=== PATIENT | female | born 1975 | race Caucasian/White ===

== ENCOUNTER → 2019-04-08 07:37 | Outpatient (CLI) | payer BC, SELFPAY ==
[2019-04-08 13:42] LABS: Basophils % 0.4 % (0.1-2.0); Eosinophils # 0.3 K/mm3 (0.0-0.4); Eosinophils % 2.9 % (0.1-12.0); Hematocrit 34.3 % (37.0-47.0); Hemoglobin 9.4 g/dL (12.2-16.2); Lymphocytes # 3.1 K/mm3 (0.7-4.5); Lymphocytes % 36.7 % (10-50); Mean Corpuscular HGB Conc 27.6 g/dL (31.8-35.4); Mean Corpuscular Hemoglobin 19.6 pg (27.0-31.2); Mean Corpuscular Volume 70.9 fl (81-99); Mean Platelet Volume 7.5 fl (7.4-10.4); Monocytes # 0.2 K/mm3 (0.1-1.0); Monocytes % 2.8 % (1.7-9.3); Neutrophils # 4.8 K/mm3 (1.8-7.8); Neutrophils % 57.1 % (37.0-80.0); Platelet Count 455 K/mm3 (142-424); Red Blood Count 4.83 M/mm3 (4.20-5.40); Red Cell Distribution Width 17.2 % (11.5-17.5); White Blood Count 8.5 K/mm3 (4.8-10.8)
[2019-04-08 14:12] LABS: Alanine Aminotransferase 19 U/L (12-78); Albumin Level 2.9 gm/dL (3.4-5.0); Albumin/Globulin Ratio 0.7 (1.1-1.8); Alkaline Phosphatase 135 U/L (46-116); Anion Gap 15.5 mEq/L (5-15); Aspartate Amino Transferase 14 U/L (15-37); Bilirubin,Total 0.3 mg/dL (0.2-1.0); Blood Urea Nitrogen 8 mg/dL (7-18); Calcium 8.6 mg/dL (8.5-10.1); Carbon Dioxide 24 mmol/L (21.0-32.0); Chloride 103 mmol/L (98-107); Chol/HDL Ratio 3.1 (1-3.5); Cholesterol 218 mg/dL (140-200); Creatinine,Serum 0.85 mg/dL (0.55-1.02); Estimated Glomerular Filt Rate 73 ml/min (>60); Free T4 (Free Thyroxine) 0.91 ng/dl (0.76-1.46); GFR (African American) 89 ML/MIN (>60); Globulin 3.9 gm/dl (1.3-3.2); Glucose 123 mg/dL (74-106); HDL Cholesterol 71 mg/dL (29-89); LDL Cholesterol 107 mg/dL (0-130); Potassium 4.5 mmoL/L (3.5-5.1); Sodium 138 mmol/L (136-145); Thyroid Stimulating Hormone 3.39 uIU/ml (0.358-3.740); Total Protein,Serum 6.8 gm/dL (6.4-8.2); Triglycerides 201 mg/dL (30-200); VLDL Cholesterol 40 mg/dL (0-40)
[2019-04-10 20:49] LABS: Estradiol 10.1 pg/mL (.); Progesterone 0.2 ng/mL (.); Vitamin B12 370 pg/mL (232-1245); Vitamin D 25 Hydroxy 13.7 ng/mL (30.0-100.0)
== END ==
PROVIDERS: PCP Nurse Practitioner Family; Visit Provider Nurse Practitioner Family
DX: Z00.00 Encounter for general adult medical examination without abnormal findings (principal)
CPT/HCPCS: 36415; 80053; 80061; 82607; 82652; 82670; 84144; 84439; 84443; 85025

== ENCOUNTER → 2021-04-18 08:30 | Outpatient (CLI) | payer BC, SELFPAY ==
[2021-04-18 09:25] LABS: Hemoglobin A1C 6.6 % (4.0-6.0)
[2021-04-18 11:21] LABS: Thyroid Stimulating Hormone 1.92 uIU/mL (0.465-4.68)
[2021-04-18 11:27] LABS: Alanine Aminotransferase 19 U/L (12-78); Albumin Level 4.2 g/dl (3.5-5.0); Albumin/Globulin Ratio 1.5 (1.1-1.8); Alkaline Phosphatase 136 U/L (38-126); Anion Gap 15.4 mEq/L (5-15); Aspartate Amino Transferase 18 U/L (14-36); Bilirubin,Total 0.4 mg/dl (0.2-1.3); Blood Urea Nitrogen 18 mg/dl (7-17); Calcium 9.2 mg/dl (8.4-10.2); Carbon Dioxide 28 mmol/L (22.0-30.0); Chloride 98 mmol/L (98-107); Chol/HDL Ratio 2.3 (1-3.5); Cholesterol 237 mg/dl (140-200); Estimated Glomerular Filt Rate 78 ml/min (>60); GFR (African American) 94 ML/MIN (>60); Globulin 2.8 g/dL (1.3-3.2); Glucose 115 mg/dl (74-100); HDL Cholesterol 105 mg/dl (40-60); Potassium 4.4 mmoL/L (3.5-5.1); Sodium 137 mmol/L (136-145); Triglycerides 175 mg/dl (30-150); VLDL Cholesterol 35 mg/dL (0-40)
[2021-04-18 11:38] LABS: Direct LDL Cholesterol 117.79 mg/dL (100-129)
== END ==
PROVIDERS: Visit Provider Nurse Practitioner Family
DX: Z13.1 Encounter for screening for diabetes mellitus (principal); Z13.29 Encounter for screening for other suspected endocrine disorder; Z13.220 Encounter for screening for lipoid disorders
CPT/HCPCS: 36415; 80053; 80061; 83036; 84443

== ENCOUNTER → 2021-09-04 09:49 | Outpatient (CLI) | payer BC, SELFPAY ==
--- NOTE | 2021-09-04 09:58 | XR_ITS ---
PROCEDURE: XR FOOT RT MIN 3V CLINICAL INDICATION: RT FOOT PAIN COMPARISON: No exams were available for comparison FINDINGS: A small ossicle is present along the anterior and proximal aspect of the navicular. This is well-circumscribed and could be related to an old fracture or an unfused ossification center. IMPRESSION: Old fracture versus unfused ossicle at the navicular otherwise negative Dictated by: Chintan Deleon MD 09/04/2021 17:55 Chintan Deleon MD in [facility] 09/04/2021 17:55
== END ==
PROVIDERS: PCP Nurse Practitioner Family; Visit Provider Nurse Practitioner Family
DX: M79.671 Pain in right foot (principal)
CPT/HCPCS: 73630

== ENCOUNTER → 2021-09-20 12:59 | Outpatient (CLI) | payer BC, SELFPAY ==
--- NOTE | 2021-09-20 13:02 | MR_ITS ---
PROCEDURE INFORMATION: Exam: MR Right Lower Extremity Other Than Joint Without Contrast; Foot Exam date and time: 09/20/2021 1:02 PM Age: 46 years old Clinical indication: Pain; Foot; Right; Additional info: Abnormal x-ray. Lateral sided foot pain [id number]. No injury or trauma. X-ray 09-04-21. TECHNIQUE: Imaging protocol: MR of the Right lower extremity without contrast. Exam focused on the foot. COMPARISON: CR XR FOOT RT MIN 3V 09/04/2021 10:21 AM FINDINGS: Bones and cartilage: There is no acute fracture or dislocation. No aggressive bone lesions are present. A small accessory bone (os supranaviculare) or chronic fracture fragment is present dorsal to the talonavicular joint. Joint spaces: A mild effusion involves the ankle joint. LIGAMENTS: Anterior talofibular ligament: The anterior talofibular ligament is not visible, consistent with a full thickness tear. Posterior talofibular ligament: The posterior talofibular ligament is thickened and has intermediate signal intensity, consistent with prior low grade injury. Calcaneofibular ligament: The calcaneofibular ligament is incompletely visualized, potentially representing a full thickness tear. Lisfranc ligament: Unremarkable. No evidence of tear. TENDONS: Flexor tendons of foot: Unremarkable. No evidence of tear. Tibialis posterior tendon: Trace tenosynovitis involves the tibialis posterior tendon. No tear. Peroneal tendons: Unremarkable as visualized. Extensor tendons of foot: Unremarkable. No evidence of tear. Tibialis anterior tendon: Unremarkable as visualized. Tarsal canal (Sinus tarsi): The sinus tarsi has normal fat signal. Tarsal tunnel: Unremarkable. Soft tissues: There is a mild amount of edema in the subcutaneous fat. Plantar fascia: The proximal plantar fascia is mildly thickened and has mildly increased T2 signal consistent with mild plantar fasciitis (fasciopathy). Mild superficial edema is also present. IMPRESSION: 1. Full-thickness tear of the anterior talofibular ligament. 2. Possible full-thickness tear of the calcaneofibular ligament. 3. Low-grade injury of the posterior talofibular ligament. 4. Mild plantar fasciitis (fasciopathy). 5. No acute fracture or dislocation.
--- NOTE | 2021-09-20 13:02 | MR_ITS ---
PROCEDURE INFORMATION: Exam: MR Left Upper Extremity Joint Without Contrast; Wrist Exam date and time: 09/20/2021 1:02 PM Age: 46 years old Clinical indication: Pain; Wrist; Left; Additional info: Wrist pain, left. Radial sided wrist pain [id number]. No injury or trauma. No prior. TECHNIQUE: Imaging protocol: MR of the Left upper extremity without contrast. Exam focused on the wrist. COMPARISON: No relevant prior studies available. FINDINGS: Limitations: Motion artifact. Bones and cartilage: There is no acute fracture or dislocation. No evidence of a healed fracture. No aggressive bone lesions are present. Joint spaces: No significant joint effusion. Scapholunate ligament: Unremarkable. No tear. Lunotriquetral ligament: Unremarkable. No tear. Triangular fibrocartilage complex: Unremarkable. No tear. Flexor compartment tendons: Unremarkable. No tear. Extensor compartment tendons: The extensor carpi ulnaris tendon is partially subluxed out of the ulnar head groove suggesting stripping of the subsheath along the palmar ulnar aspect (series 3/images 17-19). There is minimal tendinosis of the extensor carpi ulnaris tendon. Mild increased T2 signal within the tendons of the first extensor compartment (abductor pollicis longus, extensor pollicis brevis) is consistent with mild tendinosis. Muscles: Unremarkable. No acute abnormality. Soft tissues: No suspicious soft tissue mass. IMPRESSION: 1. Mild tendinosis of the tendons of the first extensor compartment (abductor pollicis longus, extensor pollicis brevis). 2. Extensor carpi ulnaris subluxation suggesting stripping of the extensor carpi ulnaris subsheath.
== END ==
LOC: RAD 12:59
PROVIDERS: PCP Nurse Practitioner Family; Visit Provider Nurse Practitioner Family
DX: M25.532 Pain in left wrist (principal); R93.89 Abnormal findings on diagnostic imaging of other specified body structures
CPT/HCPCS: 73221; 73718

== ENCOUNTER → 2021-11-20 09:00 | Outpatient (CLI) | payer BC, SELFPAY ==
--- NOTE | 2021-11-20 09:13 | XR_ITS ---
FINAL REPORT CLINICAL HISTORY: pain FINDINGS: RIGHT CALCANEUS Two views demonstrate no acute fracture or dislocation. The joint spaces appear normal. There is a small posterior calcaneal spur. No soft tissue abnormality is seen. IMPRESSION: No acute process. Reviewed, Interpreted and Dictated by David Jerez III, MD Transcribed by Michelle Joaquin Authenticated by David Jerez III, MD on 11/20/2021 11:30:00 AM [facility]
--- NOTE | 2021-11-20 09:13 | XR_ITS ---
FINAL REPORT CLINICAL HISTORY: pain FINDINGS: LEFT CALCANEUS Two views demonstrate no acute fracture or dislocation. The joint spaces appear normal. There is a small posterior calcaneal spur. No soft tissue abnormality is seen. IMPRESSION: No acute process. Reviewed, Interpreted and Dictated by David Jerez III, MD Transcribed by Michelle Joaquin Authenticated by David Jerez III, MD on 11/20/2021 11:30:04 AM [facility]
--- NOTE | 2021-11-20 09:13 | XR_ITS ---
FINAL REPORT CLINICAL HISTORY: pain FINDINGS: RIGHT FOOT Three views demonstrate no acute fracture or dislocation. There are mild degenerative changes. A small posterior calcaneal spur is identified. No soft tissue abnormality is seen. IMPRESSION: No acute process. Reviewed, Interpreted and Dictated by David Jerez III, MD Transcribed by Michelle Joaquin Authenticated by David Jerez III, MD on 11/20/2021 11:30:[address] [facility]
--- NOTE | 2021-11-20 09:13 | XR_ITS ---
FINAL REPORT CLINICAL HISTORY: pain FINDINGS: LEFT FOOT Three views demonstrate no acute fracture or dislocation. There are mild degenerative changes. A small posterior calcaneal spur is identified. No soft tissue abnormality is seen. IMPRESSION: No acute process. Reviewed, Interpreted and Dictated by David Jerez III, MD Transcribed by Michelle Joaquin Authenticated by David Jerez III, MD on 11/20/2021 11:30:[address] [facility]
== END ==
LOC: RAD 09:01
PROVIDERS: PCP Nurse Practitioner Family; Visit Provider Podiatrist
DX: M79.672 Pain in left foot (principal); M79.671 Pain in right foot
CPT/HCPCS: 73630; 73650

== ENCOUNTER 2021-12-19 17:30 | Outpatient (RCR) | payer BC, SELFPAY ==
--- NOTE | 2021-10-23 17:33 | HMH.PTOPEV ---
PT Outpatient Evaluation Rehab PT Outpatient Evaluation Start: 10/23/21 16:55 Freq: Status: Active Protocol: Document 10/23/21 16:55 FAM (Rec: 10/23/21 17:33 [id number]) Electronically Signed By Eduardo Moser PT 10/23/21 16:55 Outpatient Therapy Subjective History Subjective History This is the initial Physical THerapy evaluation for Rashida SilverioDionnegadiel. Pt is a 46 y/o female referred to PT for c/o R foot/ankle pain. Pt reports insidious onset of pain in R lateral foot in july. Pt does not recall any traumatic event to initiate pain. Pt reports she had radiographs and visited [facility]. Pt states she was in CAM boot and has transitioned to corset ankle brace. Pt reports pain in R lateral foot has decreased but is still present. Chief Complaint Pain,Stiff Symptom Type Ache,Throb,Sharp Symptoms Relieved By Rest/Positioning,Ice,OTC Meds Symptoms Aggravated By Physical Activity,Walking Prior Functional Limitations None Current Functional Limitations Housework,Recreation Activity, Walking Symptom Description Intermittent Level of pain today (0-10) 2 Pain scale - at its best (0-10) 0 Pain scale - at its worst (0-10) 5 Ankle/Foot Eval Gait Observation General Gait Pattern Observation Antalgic Gait,Decrease Weight Bear (R) Palpation Tenderness right Ankle/Foot Palpation Findings Tenderness Ankle/Foot Palpation Overall Comment TTP along styloid procss of 5th ray and peroneal brevis insertion ATF TTP negative PTF TTP negative CF TTP negative Deltoid ligament TTP negative ROM bilateral Ankle/Foot ROM Reason Not Measured Within Functional Limits Special Tests Ankle Inversion (supination) Test Positive Right Outpatient Therapy Assessment Impairments Problems/Impairmments Palpation Tenderness,Impaired Gait Pattern,Impaired Walking, Impaired Household Care, Impaired Stair Climbing, Impaired Incline Stepping, Impaired Stepping on Uneven Surface,Impaired Recre
== END 2021-12-19 17:35 | disposition home or self-care (01) ==
LOC: PT 17:30
PROVIDERS: PCP Nurse Practitioner Family; Visit Provider Podiatrist
DX: S93.401A Sprain of unspecified ligament of right ankle, initial encounter (principal); M76.71 Peroneal tendinitis, right leg; M76.72 Peroneal tendinitis, left leg
CPT/HCPCS: 97033; 97035; 97110; 97112; 97163; 97164; 97760

== ENCOUNTER 2024-01-28 18:14 | Outpatient (CLI) | payer BC, SELFPAY ==
[2024-01-28 16:52] LABS: Basophils # 0.1 K/mm3 (0-0.2); Basophils % 0.7 % (0.1-2.0); Eosinophils # 0.2 K/mm3 (0.0-0.4); Eosinophils % 2.8 % (0.1-12.0); Hematocrit 40.4 % (37.0-47.0); Hemoglobin 12.6 g/dL (12.2-16.2); Lymphocytes # 1.8 K/mm3 (0.7-4.5); Lymphocytes % 26.2 % (10-50); Mean Corpuscular HGB Conc 31.3 g/dL (31.8-35.4); Mean Corpuscular Hemoglobin 26.5 pg (27.0-31.2); Mean Corpuscular Volume 84.5 fl (81-99); Mean Platelet Volume 9.5 fl (7.4-10.4); Monocytes # 0.4 K/mm3 (0.1-1.0); Monocytes % 4.9 % (1.7-9.3); Neutrophils # 4.6 K/mm3 (1.8-7.8); Neutrophils % 65.3 % (37.0-80.0); Platelet Count 388 K/mm3 (142-424); Red Blood Count 4.77 M/mm3 (4.20-5.40); Red Cell Distribution Width 16.6 % (11.5-17.5)
[2024-01-28 17:28] LABS: Chloride 100 mmol/L (98-107); Potassium 4.9 mmoL/L (3.5-5.1); Sodium 136 mmol/L (136-145)
[2024-01-28 17:30] LABS: Alanine Aminotransferase 25 U/L (12-78); Aspartate Amino Transferase 53 U/L (14-36); Blood Urea Nitrogen 9 mg/dl (7-17); Estimated Glomerular Filt Rate 90 ml/min (>60); GFR (African American) 109 ML/MIN (>60)
[2024-01-28 17:31] LABS: Albumin Level 3.8 g/dl (3.5-5.0); Albumin/Globulin Ratio 1.2 (1.1-1.8); Alkaline Phosphatase 145 U/L (38-126); Anion Gap 10.9 mEq/L (5-15); Calcium 9.5 mg/dl (8.4-10.2); Carbon Dioxide 30 mmol/L (22.0-30.0); Globulin 3.1 g/dL (1.3-3.2); Glucose 181 mg/dl (74-100); Total Protein,Serum 6.9 g/dl (6.3-8.2)
[2024-01-28 17:49] LABS: Bilirubin,Total < 0.1 mg/dl (0.2-1.3)
[2024-01-28 18:00] LABS: Thyroid Stimulating Hormone 0.62 uIU/mL (0.465-4.68)
[2024-01-28 18:04] LABS: Ferritin 10.9 ng/ml (6.24-137)
[2024-01-28 18:40] LABS: 25-OH Vitamin D, Total < 12.8 ng/mL (30-100)
[2024-01-28 18:48] LABS: Hemoglobin A1C 6.7 % (4.0-6.0)
[2024-01-28 20:51] LABS: Vitamin B12 218 pg/mL (239-931)
== END 2024-01-28 23:59 ==
LOC: LAB.DROPOF 18:14
PROVIDERS: PCP Nurse Practitioner Family; Visit Provider Nurse Practitioner Family
DX: L65.9 Nonscarring hair loss, unspecified (principal); E11.9 Type 2 diabetes mellitus without complications; J02.9 Acute pharyngitis, unspecified; E55.9 Vitamin D deficiency, unspecified; E53.8 Deficiency of other specified B group vitamins; Z79.84 Long term (current) use of oral hypoglycemic drugs; Z79.899 Other long term (current) drug therapy
CPT/HCPCS: 80053; 82306; 82607; 82728; 83036; 84443; 85025

== ENCOUNTER 2024-02-06 14:20 | Outpatient (CLI) | payer BC, SELFPAY ==
--- NOTE | 2024-02-06 14:21 | MM_ITS ---
PROCEDURE INFORMATION: Exam: MG Bilateral Screening 3D Mammography Exam date and time: 02/06/2024 2:14 PM Age: 48 years old Clinical indication: Screening examination TECHNIQUE: Imaging protocol: Bilateral Screening tomosynthesis and 2D mammography including computer-aided detection (CAD) when performed. COMPARISON: No relevant prior studies available. FINDINGS: MAMMOGRAPHY: Breast composition: The breasts are heterogeneously dense, which may obscure small masses. Mass: None. Architectural distortion: None. Calcifications: No suspicious calcifications. Asymmetric density: None. Skin thickening: None. Axillary adenopathy: None. IMPRESSION: No mammographic evidence of malignancy. Annual screening is recommended unless otherwise clinically indicated. ASSESSMENT: BI-RADS Category 1: Negative
== END 2024-02-06 23:59 ==
LOC: RAD 14:21
PROVIDERS: PCP Nurse Practitioner Family; Visit Provider Nurse Practitioner Family
DX: Z12.31 Encounter for screening mammogram for malignant neoplasm of breast (principal)
CPT/HCPCS: 77063; 77067

== ENCOUNTER 2024-04-06 12:55 | Outpatient (CLI) | payer BC, SELFPAY ==
[2024-04-06 19:46] LABS: Hemoglobin A1C 7.1 % (4.0-6.0)
[2024-04-06 19:54] LABS: Alanine Aminotransferase 20 U/L (12-78); Albumin Level 4.2 g/dl (3.5-5.0); Albumin/Globulin Ratio 1.3 (1.1-1.8); Alkaline Phosphatase 129 U/L (38-126); Anion Gap 16.6 mEq/L (5-15); Aspartate Amino Transferase 28 U/L (14-36); Bilirubin,Total 0.2 mg/dl (0.2-1.3); Blood Urea Nitrogen 9 mg/dl (7-17); Calcium 9.6 mg/dl (8.4-10.2); Carbon Dioxide 29 mmol/L (22.0-30.0); Chloride 97 mmol/L (98-107); Estimated Glomerular Filt Rate 90 ml/min (>60); GFR (African American) 109 ML/MIN (>60); Globulin 3.3 g/dL (1.3-3.2); Glucose 122 mg/dl (74-100); Potassium 4.6 mmoL/L (3.5-5.1); Sodium 138 mmol/L (136-145); Total Protein,Serum 7.5 g/dl (6.3-8.2)
[2024-04-06 20:11] LABS: 25-OH Vitamin D, Total 32.3 ng/mL (30-100)
[2024-04-06 20:44] LABS: Vitamin B12 493 pg/mL (239-931)
[2024-04-12 05:55] LABS: Intrinsic Factor Abs, Serum 1.1 AU/mL (0.0-1.1)
== END 2024-04-06 23:59 | disposition home or self-care (01) ==
LOC: LAB.DROPOF 04-07 12:55
PROVIDERS: PCP Nurse Practitioner Family; Visit Provider Nurse Practitioner Family
DX: E11.9 Type 2 diabetes mellitus without complications (principal); E53.9 Vitamin B deficiency, unspecified; R74.8 Abnormal levels of other serum enzymes; E66.9 Obesity, unspecified; Z68.41 Body mass index [BMI] 40.0-44.9, adult
CPT/HCPCS: 80053; 82306; 82607; 83036; 86340

== ENCOUNTER 2024-05-26 16:22 | Outpatient (CLI) | payer BC, SELFPAY ==
--- NOTE | 2024-05-26 16:26 | XR_ITS ---
FINAL REPORT CLINICAL HISTORY: lump top of lt shoulder FINDINGS: Left shoulder TWO VIEW FINDINGS: Two views show no evidence of an acute, displaced fracture or dislocation of the visualized bony architecture. Mild acromioclavicular degenerative joint disease is present. No bone destruction is present. IMPRESSION: Degenerative changes. No acute bony abnormality. Authenticated and ERN
== END 2024-05-26 23:59 | disposition home or self-care (01) ==
LOC: RAD 16:23
PROVIDERS: PCP Nurse Practitioner Family; Visit Provider Nurse Practitioner Family
DX: R22.32 Localized swelling, mass and lump, left upper limb (principal)
CPT/HCPCS: 73030

== ENCOUNTER 2024-06-24 17:56 | Outpatient (CLI) | payer BC, SELFPAY ==
--- NOTE | 2024-06-24 17:57 | MR_ITS ---
PROCEDURE INFORMATION: Exam: MR Left Upper Extremity Joint Without Contrast; Shoulder Exam date and time: 06/24/2024 6:15 PM Age: 49 years old Clinical indication: Patient HX: Left shoulder pain with soft tissue mass , marker placed on lipoma , lipoma has been present x 2-3 months , PT complains about left elbow hurting TECHNIQUE: Imaging protocol: Magnetic resonance imaging of the left upper extremity without contrast. Exam focused on the shoulder. COMPARISON: CR XR SHOULDER LT MIN 2V 05/26/2024 4:33 PM FINDINGS: Bones/joints: No bone abnormalities. Articular cartilage normal. No joint effusion. Glenoid labrum: Degenerative changes. Supraspinatus tendon: No evidence of tear. Infraspinatus tendon: No evidence of tear. Subscapularis tendon: No evidence of tear. Teres minor tendon: No evidence of tear. Tendon of biceps brachii: No evidence of tear. Glenohumeral ligaments: No evidence of tear. Soft tissues: Homogeneous thickening, probably 2-3 cm diameter, of the subcutaneous fat superior to the acromioclavicular joint has no associated soft tissue nodules or fluid collections, and corresponds to a palpable lump that is identified with a skin marker. No other masses or edema. IMPRESSION: No evidence of internal derangement in the left shoulder. Benign lipoma superior to the left acromioclavicular joint.
== END 2024-06-24 23:59 | disposition home or self-care (01) ==
LOC: RAD 17:57
PROVIDERS: PCP Nurse Practitioner Family; Visit Provider Nurse Practitioner Family
DX: R22.32 Localized swelling, mass and lump, left upper limb (principal)
CPT/HCPCS: 73221

== ENCOUNTER 2024-08-16 11:30 | Day surgery (SDC) | payer BC, SELFPAY ==
[2024-08-12 16:40] VITALS: BMI 39.1
[2024-08-16 12:36] LABS: Urine Pregnancy, HCG Qual. Negative (Negative)
[2024-08-16 12:41] VITALS: BP 128/68; PULSE 87; RESP 18; TEMP 36.3; O2SAT 99
[2024-08-16] MEDS: SODIUM PHOS/BIPHOSPHATE FLEET 133ML ENEMA 133 ML RC (12:49)
[2024-08-16] MEDS: LACTATED RINGERS 1000ML 1,000 ML 25 ML IV (12:49)
[2024-08-16 12:56] LABS: POC Glucose,Bedside 108 (70-110)
--- NOTE | 2024-08-16 12:59 | P.PNANES_ITS ---
[facility] Disclaimer: The information contained in this section may have been updated after the patient was seen, as this information can be updated by other users. Medical History Elevated liver enzymes Vitamin B deficiency Diabetes type 2, controlled Surgical History History of laparoscopic cholecystectomy Family History Father Diabetes Sister Diabetes Family/Other Diabetes Social History Smoking Status: Never smoker alcohol intake: current alcohol intake frequency: holidays/special occasions only substance use type: denies use current occupational status: employed Travel in the last 8 weeks: None [facility] Anesthesia Checklist Patient Identification Patient Identification: Arm Band and Verbal (Name & ) Structural Data Admitted From: Home Planned Operative Procedure/s: Colonoscopy Consent for Planned Operative Procedure(s) Verified: Yes Verified Documents: Surgical Consent and History and Physical NPO Status Verified Time NPO: 00:00 Chart Verification Results Verified: HCG Additional verifications Anesthesia Reactions: No Airway Assessment Mallampati Score:: Class II C-Spine Mobility Assessed: Yes TMJ Mobility Assessed: Yes Dentition: Good Dentition Neurological Assessment Level of Consciousness: Awake Hx Seizures: No Numbness or tingling in extremities: No Anesthesia Plan Anesthesia Risk discussed: Yes Anesthesia Plan: Verified ASA Class: II Anesthesia Type: MAC
[2024-08-16 13:37] VITALS: O2SAT 98
--- NOTE | 2024-08-16 13:37 | EXP.HP ---
History of Present Illness *Admission Date: 08/16/24 *Reason for visit:: Screening *History of present illness: Mrs. Charles is a 49-year-old female who is here for screening colonoscopy. The examination is deemed medically necessary for colonoscopy. The patient has been seen, interviewed and examined prior to the procedure by both myself and the anesthesia provider. [facility] Disclaimer: The information contained in this section may have been updated after the patient was seen, as this information can be updated by other users. Medical History (Updated 08/16/24 @ 13:39 by Lai Davis II, MD) Screen for colon cancer Elevated liver enzymes Vitamin B deficiency Diabetes type 2, controlled Surgical History History of laparoscopic cholecystectomy Family History Father Diabetes Sister Diabetes Family/Other Diabetes Social History (Updated 08/16/24 @ 13:00 by Jefe Bowers CRNA) Smoking Status: Never smoker alcohol intake: current alcohol intake frequency: holidays/special occasions only substance use type: denies use current occupational status: employed Travel in the last 8 weeks: None Other Medical History Have you received the Pneumonia Vaccine: Yes Review of Systems Review of Systems Review of systems (narrative): Negative *Cardiovascular Comments: Negative *Gastrointestinal Comments: Negative *Genitourinary Comments: Negative *Musculoskeletal Comments: Negative *Neurologic Comments: Negative Meds Home Medications and Allergies Home Medications ?Medication ?Instructions ?Recorded ?Confirmed ?Type levocetirizine 5 mg tablet (Xyzal) 5 mg PO DAILY 08/19/23 08/12/24 History norgestimate-ethinyl estradiol 1 tab PO DAILY 08/19/23 08/12/24 History 0.18 mg/0.215mg/0.25mg-35 mcg(28)tablet (Ortho Tri-Cyclen (28)) omeprazole 40 mg capsule,delayed See Rx Instructions .Route 05/03/24 08/12/24 Rx release .COMPLEX #30 caps New Prescriptions to Start Prescriptions: Allergies Allergy/AdvReac Type Severity Reaction Status Date / Time No Known Drug Allergies Allergy Other Verified 08/16/24 12:40 Exam Data for Last 24 hours Vital signs and Labs for Last 24 Hours: Temp Pulse Resp BP Pulse Ox O2 Del Method 97.3 F L 87 18 128/68 99 Room Air 08/16/24 12:41 08/16/24 12:41 08/16/24 12:41 08/16/24 12:41 08/16/24 12:41 08/16/24 12:41 Laboratory Results - last 24 hr 08/16/24 12:25: Urine HCG, Qual Negative 08/16/24 12:46: POC Glucose 108 *Routine HEENT Exam Head: Present normocephalic Eye: Present EOMI and PERRL ENT: Present mucous membranes moist *Routine Neck Exam Neck: Present supple *Routine Respiratory Exam Respiratory: Present CTA bilaterally *Routine Cardiovascular Exam Cardiovascular: Present RRR *Routine Abdominal Exam Abdominal: Present soft and normoactive bowel sounds; Absent tenderness *Routine Rectal Exam Rectal:: deferred *Routine Genitalia Exam Genitalia:: deferred *Routine Extremities Exam Extremities: Absent cyanosis, clubbing or edema *Routine Skin Exam Skin: Present warm; Absent rash *Routine Neurological Exam Neurological: Present alert and oriented X3 Assessment and Plan *Assessment and plan (1) Screen for colon cancer: Status: Acute Category: Medical Code(s): Z12.11 - Encounter for screening for malignant neoplasm of colon Plan A/P: 1. Screening for colon cancer is the preprocedural diagnosis. The patient will be anesthetized/sedated using MAC sedation. The patient has been seen and examined. Cardiac and lung assessment prior to the examination is stable. Proceed with planned colonoscopy
--- NOTE | 2024-08-16 13:40 | HMH.PROCNOTE ---
[facility] Procedure Note Date: 08/16/24 Time: 14:03 Procedure Note:: Colonoscopy Procedure Report: Colonoscopy Endoscopist: Lai Davis II, MD Referring physician: SJ Barlow Date of Procedure: August 16, 2024 Equipment: Olympus 190 variable stiffness pediatric colonoscope Sedation: MAC sedation Indication: Mrs. Charles is a 49-year-old female who is here for initial screening colonoscopy. She reports no abdominal pain, weight loss, change in her bowel habits or rectal bleeding. She reports no family history of colon cancer. Procedure: Prior to the procedure, a history and physical exam was performed, and patient's medications and allergies were reviewed. The risks, benefits and alternatives of the sedation and procedure were discussed with the patient. All questions were answered and informed consent was obtained. The patient was brought to the procedure room. Patient identification and proposed procedure were verified by the physician and the nurse. The patient was placed in a left lateral decubitus position and the scope was passed under direct vision. Throughout the procedure, the patient's blood pressure, pulse, and oxygen saturations were monitored continuously. The colonoscopy was accomplished without difficulty. The patient tolerated the procedure well. Findings: On digital rectal examination there was normal rectal tone. There were no external hemorrhoids. The colonoscope was introduced through the anal canal to the rectum and advanced to the cecum. The ileocecal valve and appendiceal orifice were identified. The scope was advanced a short distance into the ileum which appeared grossly normal. The scope was then withdrawn into the colon. The cecum, ascending and transverse colon and mucosa were grossly normal. There were scattered diverticuli throughout the descending and sigmoid colon (LEFT colon). The rectum itself was normal. Upon retroflexion within the rectum there were grade 1 internal hemorrhoids. The preparation was excellent throughout with Marshall Preparation Score of 9. The cecal time was 10 minutes. Impression: 1. Left-sided diverticulosis 2. Grade 1 internal hemorrhoids Plan: The patient will not require screening/surveillance colonoscopy again for 10 years by ACS guidelines. I would encourage fiber supplementation on a long-term daily maintenance basis.
[2024-08-16 14:05] VITALS: BP 132/71; PULSE 84; RESP 16; TEMP 36.7; O2SAT 98
[2024-08-16 14:15] VITALS: BP 135/55; PULSE 86; RESP 16; O2SAT 97
[2024-08-16 14:25] VITALS: BP 117/71; PULSE 79; RESP 16; O2SAT 98
[2024-08-16 14:35] VITALS: BP 123/67; PULSE 78; RESP 16; O2SAT 97
== END 2024-08-16 14:42 | disposition home or self-care (01) ==
PROVIDERS: PCP Nurse Practitioner Family; Visit Provider Internal Medicine Gastroenterology
PROC: (CPT 45378; principal; 2024-08-16 11:00)
DX: K57.30 Diverticulosis of large intestine without perforation or abscess without bleeding (principal); K64.0 First degree hemorrhoids; Z12.11 Encounter for screening for malignant neoplasm of colon
CPT/HCPCS: 45378; 81025; 82962; J7120

== ENCOUNTER 2024-09-17 13:31 | Outpatient (CLI) | payer BC, SELFPAY ==
[2024-09-17 11:50] LABS: Alanine Aminotransferase 30 U/L (12-78); Albumin Level 4.1 g/dl (3.5-5.0); Albumin/Globulin Ratio 1.5 (1.1-1.8); Alkaline Phosphatase 148 U/L (38-126); Anion Gap 14.7 mEq/L (5-15); Aspartate Amino Transferase 36 U/L (14-36); Bilirubin,Total 0.4 mg/dl (0.2-1.3); Blood Urea Nitrogen 9 mg/dl (7-17); Calcium 9.4 mg/dl (8.4-10.2); Carbon Dioxide 29 mmol/L (22.0-30.0); Chloride 101 mmol/L (98-107); Chol/HDL Ratio 2.7 (1-3.5); Cholesterol 233 mg/dl (140-200); Estimated Glomerular Filt Rate 89 ml/min (>60); GFR (African American) 108 ML/MIN (>60); Globulin 2.8 g/dL (1.3-3.2); Glucose 97 mg/dl (74-100); HDL Cholesterol 86 mg/dl (40-60); Potassium 4.7 mmoL/L (3.5-5.1); Sodium 140 mmol/L (136-145); Total Protein,Serum 6.9 g/dl (6.3-8.2); Triglycerides 146 mg/dl (30-150); VLDL Cholesterol 29 mg/dL (0-40)
[2024-09-17 12:02] LABS: Direct LDL Cholesterol 136.42 mg/dL (100-129)
[2024-09-17 12:22] LABS: Thyroid Stimulating Hormone 1.25 uIU/mL (0.465-4.68)
[2024-09-17 12:23] LABS: Hemoglobin A1C 6.3 % (4.0-6.0)
[2024-09-18 12:12] LABS: Estradiol 17.3 pg/mL (.); FSH 67.6 mIU/mL (.); LH 32.6 mIU/mL (.); Progesterone <0.1 ng/mL (.)
[2024-09-22 22:08] LABS: Testosterone,Free 0.7 pg/mL (0.0-4.2)
[2024-10-01 02:14] LABS: Testosterone, Total, LC/MS 20 ng/dL (.)
== END 2024-09-17 23:59 | disposition home or self-care (01) ==
LOC: LAB.DROPOF 13:32
PROVIDERS: PCP Nurse Practitioner Family; Visit Provider Nurse Practitioner Family
DX: N92.6 Irregular menstruation, unspecified (principal); E11.9 Type 2 diabetes mellitus without complications
CPT/HCPCS: 80053; 80061; 82626; 82670; 83001; 83002; 83036; 84144; 84402; 84403; 84443

== ENCOUNTER 2025-01-04 16:11 | Outpatient (CLI) | payer BC, SELFPAY ==
[2025-01-04 17:25] LABS: Erythrocyte Sedimentation Rate 54 mm/hr (0-20)
[2025-01-04 19:15] LABS: Hemoglobin A1C 6.9 % (4.0-6.0)
[2025-01-04 19:27] LABS: Alanine Aminotransferase 22 U/L (12-78); Albumin Level 4.6 g/dl (3.5-5.0); Albumin/Globulin Ratio 1.9 (1.1-1.8); Alkaline Phosphatase 155 U/L (38-126); Anion Gap 14.7 mEq/L (5-15); Aspartate Amino Transferase 27 U/L (14-36); Bilirubin,Total 0.2 mg/dl (0.2-1.3); Blood Urea Nitrogen 14 mg/dl (7-17); Calcium 9.4 mg/dl (8.4-10.2); Carbon Dioxide 27 mmol/L (22.0-30.0); Chloride 102 mmol/L (98-107); Estimated Glomerular Filt Rate 89 ml/min (>60); GFR (African American) 108 ML/MIN (>60); Globulin 2.4 g/dL (1.3-3.2); Glucose 104 mg/dl (74-100); Magnesium 2.1 mg/dl (1.6-2.3); Potassium 4.7 mmoL/L (3.5-5.1); Sodium 139 mmol/L (136-145); Uric Acid 6.2 mg/dl (2.5-6.2)
[2025-01-04 19:39] LABS: 25-OH Vitamin D, Total 33.7 ng/mL (30-100)
[2025-01-04 20:05] LABS: HCG,Quantitative < 2 mIU/ml (0-5.42)
[2025-01-04 20:15] LABS: Vitamin B12 630 pg/mL (239-931)
[2025-01-06 12:12] LABS: FSH 77.1 mIU/mL (.); LH 35.1 mIU/mL (.); Progesterone 0.1 ng/mL (.); Testosterone,Total 14 ng/dL (4-50)
[2025-01-06 14:12] LABS: RA Latex Turbid. 11.7 IU/mL (<14.0)
[2025-01-07 09:14] LABS: Antinuclear Antibodies, IFA Negative (.)
[2025-01-09 15:25] LABS: Intrinsic Factor Abs, Serum 1.1 AU/mL (0.0-1.1)
== END 2025-01-04 23:59 | disposition home or self-care (01) ==
LOC: LAB.DROPOF 16:12
PROVIDERS: PCP Nurse Practitioner Family; Visit Provider Nurse Practitioner Family
DX: N92.6 Irregular menstruation, unspecified (principal); E53.9 Vitamin B deficiency, unspecified; E11.9 Type 2 diabetes mellitus without complications
CPT/HCPCS: 80053; 82306; 82607; 82670; 83001; 83002; 83036; 83735; 84144; 84403; 84443; 84550; 84702; 85651; 86038; 86340; 86431

== ENCOUNTER 2025-03-31 17:00 | Outpatient (RCR) | payer BC, SELFPAY ==
--- NOTE | 2025-03-08 08:57 | HMH.PTOPEV ---
PT Outpatient Evaluation Rehab PT Outpatient Evaluation Start: 03/08/25 08:31 Freq: Status: Active Protocol: Document 03/08/25 08:31 GERMÁN (Rec: 03/08/25 08:57 GERMÁN [id number]) E-signed By Vega Gallagher, PT Outpatient Therapy Subjective History Subjective History Pt is a 49 yof who is referred to [facility] outpatient PT with complaints of R wrist pain and L thumb pain that both began approximately 6-8 weeks prior. The pt reports that her R wrist pain is much worse than her L thumb pain and describes the thumb as a nuisance. She reports that the thumb will just occasionally catch and lock. Her right wrist pain is localized the radial side of her wrist and into her dorsal thumb. She reports that it is worse when she is using her thumb, lifting items with her left hand. She reports that her symptoms are lessened when she takes Aleve. She reports that she occasionally wears a soft brace, which helps some. 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 Chief Complaint Pain,Stiff,Decreased Systems Technician Strength Symptom Type Ache,Sharp Symptoms Relieved By OTC Meds Prior Functional Limitations None Current Functional Limitations Reaching,Housework,Dressing Symptom Description Intermittent,Activity Dependent Level of pain today (0-10) 4 Pain scale - at its best (0-10) 0 Pain scale - at its worst (0-10) 8 Wrist/Hand Eval Palpation Tenderness/Visual Exam Wrist pain right tenderness wrist exam standard right Wrist/Hand Palpation Findings Tenderness Wrist/Hand Palpation Overall Comment TTP 3/4 at Radial Styloid of R wrist Wrist Range of Motion Right Wrist Extension Active Range of Motion ( 60 degrees) Wrist Flexion Active Range of Motion ( 70 degrees) Wrist Radial Deviation Active Range of 20 Motion (degrees) Wrist Ulnar Deviation Active Range of 30 Motion (degrees) Forearm Supination Active Range of 50 Motion (degrees) Forearm Pronation Active Range of Motion 40 (degrees) Wrist Manual Muscle Testing Right Wrist Extension Strength Grade 2+ Poor+ Wrist Flexion Strength Grade 4 Good Wrist Radial Deviation Strength Grade 2 Poor Wrist Ulnar Deviation Strength Grade 2+ Poor+ Forearm Supination Strength Grade 2+ Poor+ Forearm Pronation Strength Grade 2+ Poor+ Systems Technician/Pinch Strength Left Systems Technician Strength Measurement (lbs) 25 Palmar Pinch (3-point) Ability Normal Performance Tip Pinch (2-point) Strength Measurement 12 (lbs) Lateral Pinch Ability Normal Performance Right Systems Technician Strength Measurement (lbs) 20 Palmar Pinch (3-point) Ability Moderate Impairment Tip Pinch (2-point) Strength Measurement 13 (lbs) Special Tests Wrist Phalen Test Negative Left Hand Kellogg Test Negative Left Wrist Tinel Test Negative Left Hand Piano Rees Test Negative Left Hand Summers's Sign Negative Left Hand Lunotriquestral Shear Test Negative Left Wrist Finklestein Test Positive Left QuickDASH Activities Please rate your ability to do the following activities in the last week by selecting the number below the appropriate response. 1. Open a tight or new jar. Moderate difficulty 2. Do heavy porcelain buildup assistant (e.g., wash Mild difficulty camilo, floors). 3. Carry a shopping bag or briefcase. Severe difficulty 4. Wash your back. Unable 5. Use a knife to cut food. Mild difficulty 6. Recreational activities in which you Unable take some force or impact through your arm, shoulder, or hand (e.g., golf, hammering, tennis, etc.). 7. During the past week, to what extent Moderately has your arm, shoulder or hand problem interfered with your normal social activities with family, friends, neighbors or groups? 8. During the past week, were you Moderately limited limited in your work or other regular daily activites as a result of your arm, shoulder or hand problem? 9. Arm, shoulder or hand pain. Moderate 10. Tingling (pins and needles) in your None arm, shoulder or hand. 11. During the past week, how much Moderate difficulty difficulty have you had sleeping because of the pain in your arm, shoulder or hand? Quick DASH 34 Outpatient Therapy Assessment Impairments Problems/Impairmments Palpation Tenderness,Impaired Range of Motion,Impaired Strength,Impaired Dressing, Impaired Household Care, Subjective C/O Pain Prognosis Rehab Potential Good Comment w HEP compliance Clinical Impression Consistent with Diagnosis Yes Consistent with DeQuervain's Tenosynovitis Short Term Goals Number of Weeks 3 Decreased Palpation Tenderness Yes: 1-2/4 to TTP assessment above Increase Range of Motion Yes: 50-75% WNL R Wrist ROM Increase Strength Yes: 4/5 to R Wrist Improve Ability to Dress Self Yes: Able to clasp bra with minimal difficulty Improve Quick Dash Score Yes: to 25 Decrease Subjective C/O Pain Yes: 5/10 with above assessment Patient to be Ind w/ HEP Yes Resin Painter Goals Number of Weeks 6 Decreased Palpation Tenderness Yes: 0-1/4 to TTP assessment above Increase Range of Motion Yes: 75-100% WNL R wrist AROM Increase Strength Yes: Symmetrical Systems Technician Strength Improve Ability For Household Care Yes: Able to do normal cooking /cleaning activities at home Improve Tolerance to Work Activities Yes: Normal daily work duties without increasing symptoms Improve Quick Dash Score Yes: <15 Decrease Subjective C/O Pain Yes: 2-01/10 with above assessment Patient to be Ind w/ Advanced HEP Yes Outpatient Therapy Plan of Care Treatment Plan May Include Therapeutic Exercise Including Home Yes Exercise Program Manual Therapy Techniques Yes Neuromuscular Re-education Yes Therapeutic Activities to Return to Yes Previous Functional/Work Level Gait Training Yes ADL/Self Care Education Yes Dry Needling Yes Thermal Modalities Yes Electrical Stimulation Yes Iontophoresis Yes Parrafin Yes Orthotics/Bracing/Splinting Yes Manual Lymphatic Drainage Yes Eval/Re-Eval Yes Frequency Times per week 2 Duration Number of Weeks 6 Addendums This patient is a candidate for social No or vocational rehab? Patient/Guardian verbally acknowledges Yes understanding of treatment program and consents to further treatment? Patient/Guardian verbally acknowledges Yes understanding of diagnosis, prognosis and goals for treatment? Eval Complexity PT Charges 49279 - Low Complexity Shoulder/Elbow Eval Shoulder Objective Measurements Elbow Objective Measurements PHYSICIAN CERTIFICATION: I certify the specified therapy services for Rashida Gabrielle Delgadillo are required, authorized, and reviewed every 30 days.
== END 2025-03-31 23:59 | disposition home or self-care (01) ==
LOC: PT 17:00
PROVIDERS: PCP Nurse Practitioner Family; Visit Provider Internal Medicine
DX: M25.531 Pain in right wrist (principal); M65.312 Trigger thumb, left thumb
CPT/HCPCS: 97035; 97110; 97140; 97163

== ENCOUNTER 2025-04-07 16:07 | Outpatient (RCR) | payer BC, SELFPAY ==
--- NOTE | 2025-04-07 16:49 | HMH.RHREAS ---
Rehab Reassessment Rehab OP Re-assessment Start: 04/07/25 16:13 Freq: Status: Active Protocol: Document 04/07/25 16:16 ELO (Rec: 04/07/25 16:49 PHORNE [id number]) E-signed By Humberto Rodriguez, PT QuickDASH Activities Please rate your ability to do the following activities in the last week by selecting the number below the appropriate response. 1. Open a tight or Severe difficulty new jar. 2. Do heavy Moderate difficulty automobile mechanic apprentice (e. g., wash camilo, floors). 3. Carry a shopping Moderate difficulty bag or briefcase. 4. Wash your back. Unable 5. Use a knife to Mild difficulty cut food. 6. Recreational Mild difficulty activities in which you take some force or impact through your arm, shoulder, or hand (e.g., golf, hammering, tennis, etc.). 7. During the past Quite a bit week, to what extent has your arm, shoulder or hand problem interfered with your normal social activities with family, friends , neighbors or groups? 8. During the past Slightly limited week, were you limited in your work or other regular daily activites as a result of your arm, shoulder or hand problem? 9. Arm, shoulder or Moderate hand pain. 10. Tingling (pins None and needles) in your arm, shoulder or hand. 11. During the past Moderate difficulty week, how much difficulty have you had sleeping because of the pain in your arm, shoulder or hand? Quick DASH 32 Work Module (optional) The following questions ask about the impact of your arm, shoulder or hand problem on your ability to work (including homemaking if that is your main work role). 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 Yes 1. Using your usual Mild difficulty technique for your work? 2. Doing your usual No difficulty work because of arm, shoulder or hand pain? 3. Doing your work No difficulty as well as you would like? 4. Spending your No difficulty usual amount of time doing your work? Quick Dash Work 5 Module Score Rehab Re-assessment Subjective Subjective Pt reports pain currently in the R wrist is 4/10. She states, It was hurting me this morning a lot more, like a 5/10, and I iced it at work and that helped some . She feels better overall, except for the increased pain that remains. Objective Objective Notes MMT: R wrist grossly 5/5 in FLEX/EXT/SUP/PRON. R thumb FLEX/OPPOSITION/ADD 5/5, EXT/ABD 4+/5 AROM R Wrist: WNL throughout AROM R thumb: EXT/ABD ~ 75% of normal ROM, FLEX/ OPPOSITION 100% of normal ROM. Pain: aching pain with activity and lifting objects . TTP: 11/06 Extensor Pollicis Brevis and Abductor Pollicis Longus tendons. Purchasing Specialist dynamometer testing (pos 2): R hand 35lbs Assessment Progress Assessment Progressing as Expected Assessment Notes Pt continues to have increased pain and tenderness in the R wrist related to thumb tendons for extension and abduction. She has shown significantly improve AROM and strength throughout the R wrist and hand. Skilled therapy services remain indicated to aid reduction of pain and further increase strength in order to return pt to all prior ADLs at previous level of function. Patient goals met ST/7 LT/8 Plan Plan Continue per initial POC. Frequency of Therapy 1 x/wk Duration of therapy 4 wks Time and Billing Re-Eval Time 13 Re-Eval Billing 1 Units Charge for PT Yes reassessment? PHYSICIAN CERTIFICATION: I certify the specified therapy services for Rashida Gabrielle Delgadillo are required, authorized, and reviewed every 30 days.
== END 2025-04-07 23:59 | disposition home or self-care (01) ==
LOC: PT 16:07
PROVIDERS: PCP Nurse Practitioner Family; Visit Provider Internal Medicine
DX: M25.531 Pain in right wrist (principal); M65.312 Trigger thumb, left thumb
CPT/HCPCS: 97035; 97110; 97164

== ENCOUNTER 2025-07-11 10:47 | Outpatient (CLI) | payer BC, SELFPAY ==
[2025-07-11 13:33] LABS: Coronavirus 19, PCR Not Detected (NotDetected); Influenza A, PCR Not Detected (NotDetected); Influenza B, PCR Not Detected (NotDetected)
== END 2025-07-11 23:59 ==
LOC: LAB.DROPOF 07-12 10:11
PROVIDERS: PCP Nurse Practitioner Family; Visit Provider Nurse Practitioner Family
DX: R68.89 Other general symptoms and signs (principal)
CPT/HCPCS: 87631

== ENCOUNTER 2025-10-25 09:51 | Outpatient (CLI) | payer BC, SELFPAY | END 2025-10-25 23:59 | disposition home or self-care (01) | LOC: LAB.DROPOF 10-28 09:52 | PROVIDERS: PCP Nurse Practitioner Family; Visit Provider Internal Medicine | DX: J06.9 Acute upper respiratory infection, unspecified (principal) | CPT/HCPCS: 87635 ==